=== PATIENT | female | born 1990 | race Caucasian/White ===

== ENCOUNTER 2016-09-24 00:38 | Emergency (ER) | payer OTHER ==
[2016-09-24] MEDS ORDERED: IOPAMIDOL 370 (76%) IV.SOLN 150 ML IV ONE (00:39)
[2016-09-24] MEDS ORDERED: LACTATED RINGERS 1,000 ML ONE (01:05)
[2016-09-24] MEDS ORDERED: ONDANSETRON 4 MG/2ML 2 ML VIAL ONE (01:05)
[2016-09-24] MEDS ORDERED: HYDROMORPHONE HCL 0.5 MG/0.5 ML SYRINGE ONE ×2 (01:05→02:32)
[2016-09-24 01:37] LABS: BASO % 0.3 % (0.2-1.0); EOS # 0.3 (0.0-0.5); HEMATOCRIT 37.9 % (37.0-47.0); HEMOGLOBIN 12.7 gm/l (12.0-16.0); IMM NEUT # 0.1 K/mm3 (0-0.2); IMM NEUT% 0.4 % (0-1); LYMPH # 4.1 (1.0-4.8); LYMPH % 28.8 % (15-45); MEAN CELL VOLUME 91.5 fl (81.0-99.0); MEAN CORPUSCULAR HEMOGLOBIN 30.7 pg (27.0-31.0); MEAN CORPUSCULAR HGB CONC 33.5 g/dl (33.0-37.0); MEAN PLATELET VOLUME 9.7 fl (7.4-10.4); MONO # 0.7 (0.0-0.8); NEUT % 63.5 % (43-75); PLATELET COUNT 361 K/mm3 (130-400); RED CELL DISTRIBUTION WIDTH 12.6 % (11.5-14.5)
[2016-09-24 01:52] LABS: ALB/GLOB RATIO 1.4 (>1.0); ALBUMIN 4.1 gm/dL (3.5-5.7); CALCIUM 9.6 mg/dL (8.6-10.3)
[2016-09-24] MEDS ORDERED: PROMETHAZINE HCL 25 MG/ML VIAL ONE ×2 (02:32→05:01)
[2016-09-24 03:57] LABS: URINE BILIRUBIN NEGATIVE (NEGATIVE); URINE BLOOD 4+ (NEGATIVE); URINE GLUCOSE (UA) 1+ (NEGATIVE); URINE LEUKOCYTE ESTERASE NEGATIVE (NEGATIVE); URINE NITRITE NEGATIVE (NEGATIVE); URINE PROTEIN 2+ (NEGATIVE); URINE UROBILINOGEN NORMAL (0-1 mg/dl)
[2016-09-24 03:58] LABS: URINE APPEARANCE BLOODY; URINE COLOR DARK RED
[2016-09-24 04:01] LABS: URINE BACTERIA 2+; URINE EPITHELIAL CELLS 15-20 /hpf; URINE RBC >100 /hpf
[2016-09-24 04:02] LABS: URINE MUCUS 1+
[2016-09-24 04:43] LABS: PH,URINE 6.5 (5.0-8.0); URINE BILIRUBIN NEGATIVE (NEGATIVE); URINE BLOOD 4+ (NEGATIVE); URINE GLUCOSE (UA) TRACE (NEGATIVE); URINE LEUKOCYTE ESTERASE NEGATIVE (NEGATIVE); URINE NITRITE NEGATIVE (NEGATIVE); URINE PROTEIN 1+ (NEGATIVE); URINE UROBILINOGEN NORMAL (0-1 mg/dl)
[2016-09-24 04:48] LABS: URINE APPEARANCE HAZY; URINE COLOR LIGHT YELLOW
[2016-09-24 04:51] LABS: URINE BACTERIA 0; URINE RBC >100 /hpf
[2016-09-24] MEDS ORDERED: OXYCODONE HCL 5 MG TABLET ONE (05:01)
[2016-09-24] MEDS ORDERED: KETOROLAC TROMETHAMINE 30 MG/ML 1 ML VIAL ONE (05:01)
[2016-09-24] MEDS ORDERED: SODIUM CHLORIDE 0.9% 100 ML IV ONE (05:01)
--- NOTE | 2016-09-24 09:24 | CT ---
CT ABDOMEN AND PELVIS WITH CONTRAST HISTORY: Diffuse abdominal pain and left lower back pain. TECHNIQUE: Following intravenous administration of 125 mL of Isovue-370, contiguous axial images were acquired from the lung bases to the ischial tuberosities. Oral contrast was not administered. COMPARISON:None. FINDINGS: LUNG BASES: No gross airspace consolidation or pleural effusion. LIVER: No focal lesion. Fatty infiltration along the falciform ligament. SPLEEN: No focal lesion. PANCREAS: . Fatty atrophy of the pancreatic tail. ADRENAL GLANDS: No mass effect. KIDNEYS: 11 mm calcification at the left renal pelvis with minor wall thickening. However no pelvic caliectasis is noted. No focal renal lesions. 8 mm left renal cyst. GALLBLADDER: Small high attenuation foci suggestive of cholelithiasis. BOWEL: Fluid within the proximal colon, minor wall thickening at the hepatic flexure. APPENDIX: Nonenlarged, with no inflammatory fatty stranding.. PELVIC ORGANS: No gross mass effect. FREE FLUID: No gross free fluid identified. ABDOMINOPELVIC LYMPH NODES: No abnormally enlarged lymph nodes identified. ABDOMINAL AORTA: Normal caliber. OSSEOUS STRUCTURES: No grossly destructive lesions. No vertebral compression deformity. IMPRESSION: 1. Minor wall thickening of proximal colon, early colitic change is possible. Nonobstructive appearance of bowel. 2. Nonobstructive 11 mm calculus at the left renal pelvis with minor wall thickening, minor pyelitis is possible. 3. Fatty atrophy of the pancreatic tail. Preliminary report relayed to the Emergency Medicine medical service by Dr. Barragan on 09/24/2016 at 0403 hours. Findings discussed with Dr. Zavaleta of the Emergency Medicine clinical service on 09/24/2016 at 0919 hours.
== END 2016-09-24 06:16 | disposition home or self-care (01) ==
LOC: ED 00:38
DX: R10.9 Unspecified abdominal pain (principal); R31.9 Hematuria, unspecified; Z87.442 Personal history of urinary calculi; E11.9 Type 2 diabetes mellitus without complications; Z79.84 Long term (current) use of oral hypoglycemic drugs
CPT/HCPCS: 83690; 84703; 85025; 80053; 81001 ×2; 74177; 96375 ×3; 96376; 99284 ×2; 96361; 96365; 51701; A9270; J2550 ×2; J1885; J2405; J7120; J7050; Q9967; J1170 ×2